=== PATIENT | female | born 1995 | race Caucasian/White ===

== ENCOUNTER 2016-11-30 11:08 | Emergency (ER) | payer BC ==
[~2016-11-30] VITALS: Ht 175.3 cm; Wt 75.0 kg
[2016-11-30 11:10] VITALS: BP 135/76; PULSE 90; RESP 12; TEMP 99.4; O2SAT 97
--- NOTE | 2016-11-30 11:41 | PD ---
HPI Chief Complaint: Injury Time Seen by Provider: 11:28 Travel History International Travel<30 days: No Contact w/Intl Traveler<30days: No Traveled to known affect area: No History of Present Illness HPI 21-year-old female presents the emergency department approximately week and a half after tripping and twisting her left ankle while walking at night. [facility], and told that she had a sprained ankle is given an Dell bandage and crutches. She states the pain continues and she was here for a second opinion. Patient denies bruising or significant swelling. She has been using [id number] Tylenol and ibuprofen. Patient states she has twisted this ankle in the past. An is currently about a 6 out of 10. It is worse with varus and valgus movement of the ankle. She has no known drug allergies. PFSH Past Medical History ?: Not LMP: CURRENTLY ON PERIOD Social History Alcohol Use: No Tobacco Use: No Substance Use: No Allergies-Medications (Allergen,Severity, Reaction): Coded Allergies: No Known Allergies (Unverified , 11/30/16) Review of Systems Except as stated in HPI: all other systems reviewed are Neg General / Constitutional: No: Fever Eyes: No: Visual changes HENT: No: Headaches Cardiovascular: No: Chest Pain or Discomfort Respiratory: No: Shortness of Breath Gastrointestinal: No: Abdominal Pain Genitourinary: No: Dysuria Musculoskeletal: Positive: Arthralgias, Limited ROM, Pain (see history of present illness) Skin: No Rash Neurologic: No: Weakness Psychiatric: No: Depression Endocrine: No: Polydipsia Hematologic/Lymphatic: No: Easy Bruising Physical Exam Narrative GENERAL: Patient appears no acute distress. SKIN: Warm and dry. Normal color. Normal turgor. No ecchymosis. HEAD: Atraumatic. Normocephalic. EYES: Pupils equal and round. No scleral icterus. No injection or drainage. ENT: No nasal bleeding or discharge. Mucous membranes pink and moist. NECK: Trachea midline. Supple nontender. CARDIOVASCULAR: Regular rate and rhythm. RESPIRATORY: No accessory muscle use. Clear to auscultation. Breath sounds equal bilaterally. GASTROINTESTINAL: Abdomen soft, non-tender, nondistended. Hepatic and splenic margins not palpable. MUSCULOSKELETAL: Extremities without clubbing, cyanosis, or edema. No obvious deformities. Patient's right ankle appears unremarkable. She has mild tenderness along the lateral malleolus, but strength is full without significant increase in pain. NEUROLOGICAL: Awake and alert. No obvious cranial nerve deficits. Motor grossly within normal limits. Five out of 5 muscle strength in the arms and legs. Normal speech. PSYCHIATRIC: Appropriate mood and affect; insight and judgment normal. Data Data Last Documented VS Vital Signs Date Time Temp Pulse Resp B/P (MAP) Pulse Ox O2 Delivery O2 Flow Rate FiO2 11/30/16 11:10 99.4 90 12 135/76 (95) 97 Orders Orders Splint Or Brace Apply/Monitor (11/30/16 11:33) [facility] Medical Decision Making Medical Screen Exam Complete: Yes Emergency Medical Condition: Yes Differential Diagnosis Left ankle strain. Left ankle sprain. Possible fracture. Narrative Course Based on my history and physical the patient does not warrant radiographic imaging. Patient is placed in ankle stirrup splint for more significant immobilization. Patient is to take ibuprofen, Tylenol, ice the area frequently, and ankle exercises as discussed. Patient follow up if symptoms do not continue to improve or worsen as needed. Diagnosis Primary Impression: Moderate left ankle sprain Referrals: Primary Care Physician Patient Instructions: Ankle Exercises (GEN), Ankle Stirrup Splint (ED), General Instructions Additional Instructions: Based on my history and physical the patient does not warrant radiographic imaging. Patient is placed in ankle stirrup splint for more significant immobilization. Patient is to take ibuprofen, Tylenol, ice the area frequently, and ankle exercises as discussed. Patient follow up if symptoms do not continue to improve or worsen as needed. Med/Other Pt SpecificInfo: No Meds Exist/No RX given Disposition: 01 DISCHARGE HOME Condition: Stable Octavio Escalante Nov 30, 2016 11:41
== END 2016-11-30 12:21 | disposition home or self-care (01) ==
LOC: NEPK 11:08
DX: S93.402A Sprain of unspecified ligament of left ankle, initial encounter (principal); X50.1XXA Overexertion from prolonged static or awkward postures, initial encounter; Y93.01 Activity, walking, marching and hiking
CPT/HCPCS: 99283; L1906